=== PATIENT | female | born 1985 | race Caucasian/White ===

== ENCOUNTER 2017-10-22 13:49 | Emergency (ER) | payer MEDICAID ==
[2017-10-22 14:05] VITALS: BP 117/78
[2017-10-22] MEDS ORDERED: IBUPROFEN 600 MG TAB PO ONE (14:19)
[2017-10-22] MEDS ORDERED: ACETAMINOPHEN 500 MG TAB PO ONE (14:19)
--- NOTE | 2017-10-22 14:29 | EDPHY ---
H & P Time Seen by Provider: 10/22/17 14:01 HPI/ROS: This patient reports left forefoot pain around the head of the 1st and 2nd metatarsals after walking for 4 hr yesterday and helping an elderly woman pull out a tree from her yd. She does recall any discrete injury she does noticed pain in the foot after walking for a few hours that has subsequently worsen to current 8/10 achy pain that is worse with walking. She notes no other exacerbating factors. She has not taken any medications for pain so far today. ROS: Constitutional: No fevers. Musculoskeletal: No other musculoskeletal complaints. Integumentary: No overlying skin rash or discoloration Endocrine: Negative 5 point ROS is otherwise negative. Past Medical/Surgical History: epilepsy Smoking Status: Current every day smoker Physical Exam: Physical Exam Vital signs are normal. General: No acute distress Lungs: No respiratory distress. Cardiac: Brisk capillary refill is intact throughout. Pulses are 2+ and symmetric in the affected extremity. Skin: No rash or pallor. Left foot: Patient has tenderness plantar aspect of her foot near the distal 1st and 2nd metatarsals. The pain worsens with flexion of the foot. No ankle swelling or tenderness. No Achilles tenderness. No ecchymosis. Right for the remainder for musculoskeletal exam is atraumatic normal. Neuro: Alert and oriented x3 with no sensorimotor deficits. Initial differential diagnosis: Plantar fasciitis, stress fracture, foot sprain Constitutional: Initial Vital Signs Temperature (C) 37.0 C 10/22/17 13:58 Heart Rate 87 10/22/17 13:58 Respiratory Rate 16 10/22/17 13:58 Blood Pressure 117/78 10/22/17 13:58 O2 Delivery Mode Room Air Allergies/Adverse Reactions: diphenhydramine [From Benadryl] Allergy (Verified 10/22/17 13:56) Home Medications: Medication Instructions Recorded Keppra 1000 mg 10/22/17 Lexapro 10 MG 10/22/17 Methocarbamol [Robaxin 750 mg (*)] 750 - 1,500 mg PO QID PRN #30 tab 10/22/17 MDM/Departure - MDM Diagnostics: Three-view foot x-rays: Normal by my interpretation-no fracture Imaging: I viewed and interpreted images myself Medications Given: Discontinued Medications Acetaminophen (Tylenol) 1,000 mg PO EDNOW ONE Stop: 10/22/17 14:20 Last Admin: 10/22/17 14:35 Dose: 1,000 mg Ibuprofen (Motrin) 600 mg PO EDNOW ONE Stop: 10/22/17 14:20 Last Admin: 10/22/17 14:35 Dose: 600 mg ED Course/Re-evaluation: Postop shoe applied by our tech with my supervision. Discussion: Patient with foot sprain/strain by history and exam. She is placed in a postop shoe. I counseled regarding sprain with plan to use cane or crutches. Will treat her with ibuprofen Tylenol. Differential diagnosis still includes potential plantar fasciitis or occult stress fracture. I counseled regarding this. She will follow up with Podiatry if her symptoms are not improving over the next 7-10 days with treatment plan. - Depart Disposition: Home, Routine, Self-Care Clinical Impression: Foot sprain Qualifiers: Encounter type: initial encounter Laterality: left Qualified Code(s): S93.602A - Unspecified sprain of left foot, initial encounter Condition: Good Instructions: Foot Sprain (ED) Additional Instructions: Diagnosis: Left foot sprain Today findings most consistent with foot muscle strain and possible ligament sprain from overuse. Plan: Ice 20 min at a time 3 times a day to affected area for the next few days. Continue ibuprofen-600 mg per 6 hr while awake and Tylenol 650-1000 mg per 4-6 hours. Do not exceed 3000 mg in 24 hr Methocarbamol muscle relaxant in addition if needed Postop shoe whenever your up and about Cane or crutches until symptoms improve Call the film loader arrange follow-up appointment for further evaluation for symptoms are significantly improving over the next 7-10 days with treatment plan. Return emergency department for any significant worsening despite treatment plan. Prescriptions: Methocarbamol [Robaxin 750 mg (*)] 750 - 1,500 mg PO QID PRN #30 tab PRN Reason: Muscle Spasms Referrals: DR RUBY [Other] - As per Instructions Sukhdev Singletary DPM [Doctor of Podiatric Medicine] - As per Instructions
== END 2017-10-22 15:05 | disposition home or self-care (01) ==
LOC: CED 13:49
DX: S93.602A Unspecified sprain of left foot, initial encounter (principal); F17.200 Nicotine dependence, unspecified, uncomplicated; X58.XXXA Exposure to other specified factors, initial encounter; Y99.8 Other external cause status; Y93.01 Activity, walking, marching and hiking
CPT/HCPCS: 73630-PO; L4386

== ENCOUNTER 2017-11-05 12:52 | Emergency (ER) | payer MEDICAID ==
[2017-11-05] MEDS ORDERED: LET GEL TOPICAL 1 EA SYR TP ONE (13:05)
--- NOTE | 2017-11-05 13:15 | EDPHY ---
H & P Time Seen by Provider: 11/05/17 12:59 HPI/ROS: This patient sustained lacerations to her right thumb and 2nd webspace from a glass vase that was wet from condensation in the refrigerator when she picked up it slipped broke and caused the laceration. She reports moderate pain in bleeding that slowed with direct pressure prior to arrival. She reports paresthesias to the 2nd finger. No other associated symptoms. She arrived by private vehicle for further evaluation. ROS: Neuro: Other complaints cardiovascular: No pallor to the affected hand or fingers. Musculoskeletal: No difficulty moving the affected finger. 5 point ROS is otherwise negative. 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 Smoking Status: Current every day smoker Physical Exam: Physical Exam Vital signs are normal. General: No acute distress HEENT: Atraumatic. Eyes: Pupils equal and react to light. Extraocular motions are intact. Lungs: No respiratory distress. Cardiac: Brisk capillary refill is intact throughout. Pulses are 2+ and symmetric in the affected extremity. Skin: No rash or pallor. Extremities: Atraumatic normal except for right hand Right hand: Patient has a 1.5 cm full-thickness laceration oriented longitudinally to the distal phalanx of the left thumb-palmar aspect with subcutaneous tissue evident but no deeper structures injured and no foreign bodies and direct examination. She has a 2 cm laceration to the webspace between the 2nd and 3rd fingers with subcutaneous tissue evident but no deeper structures injured, no foreign bodies present on direct examination she maintains full range of motion of the affected fingers. with minimal bleeding. Neuro: Alert and oriented x3. no loss of 2 point discrimination in the affected finger Constitutional: Initial Vital Signs Temperature (C) 36.6 C 11/05/17 12:56 Heart Rate 102 H 11/05/17 12:56 Respiratory Rate 18 11/05/17 12:56 Blood Pressure 122/92 H 11/05/17 12:56 O2 Sat (%) 96 11/05/17 12:56 O2 Delivery Mode Room Air Allergies/Adverse Reactions: diphenhydramine [From Benadryl] Allergy (Verified 10/22/17 13:56) Home Medications: Medication Instructions Recorded NK [No Known Home Meds] 11/05/17 MDM/Departure - MDM Procedures: Digital block: After verbal consent, using a 50 50 mix of 0.5% Marcaine 2% plain lidocaine, 27 gauge needle, chlorhexidine scrub under sterile conditions- 3 injections were administered to the base of the thumb, 8 mL with good effect. Patient tolerated this well. There were no complications. The thumb wound is 1.5 cm, wound at the 2nd web space is 2 cm in length described physical exam. The wound was copiously irrigated with saline. The wound was explored for foreign bodies and none were found. The wound was prepped and draped in the normal sterile fashion. The 2nd web space wound was anesthetized using a 50 50 mix of 0.5% Marcaine and 1% plain lidocaine, 3 mL using 27 gauge needle with good effect. The edges of the thumb were reapproximated using 4 0 Prolene on a P3 needle -5 running sutures with good hemostasis and cosmesis. The patient tolerated the procedure well. 2nd webspace closed with 6 running sutures using 4 0 Prolene. Patient tolerated this well. There were no complications. Medications Given: Discontinued Medications Tetracaine/Epinephrine/Lidocaine (Let Gel Topical) 1 ea TP EDNOW ONE Stop: 11/05/17 13:06 Last Admin: 11/05/17 13:08 Dose: 1 ea - Depart Disposition: Home, Routine, Self-Care Clinical Impression: Hand laceration Qualifiers: Encounter type: initial encounter Foreign body presence: without foreign body Laterality: right Qualified Code(s): S61.411A - Laceration without foreign body of right hand, initial encounter Condition: Good Instructions: Laceration (ED) Additional Instructions: Diagnosis: Hand lacerations Plan: Keep the wound clean and dry for the next 2 days. Then clean daily with warm soapy water Tylenol and ibuprofen for pain as needed Return for suture removal in 10-12 days. Return sooner for redness, bleeding poor worsening despite treatment plan. Referrals: NONE *PRIMARY CARE P,. [Primary Care Provider] - As per Instructions
[2017-11-05 14:31] VITALS: BP 125/84
== END 2017-11-05 14:32 | disposition home or self-care (01) ==
LOC: CED 12:52
PROC: 0HQFXZZ Repair Right Hand Skin, External Approach (ICD-10-PCS; principal; 2017-11-05)
DX: S61.411A Laceration without foreign body of right hand, initial encounter (principal); F17.200 Nicotine dependence, unspecified, uncomplicated; W25.XXXA Contact with sharp glass, initial encounter

== ENCOUNTER 2018-11-24 20:59 | Emergency (ER) | payer MEDICAID | END 2018-11-24 22:29 | disposition home or self-care (01) | LOC: CED 20:59 ==